=== PATIENT | female | born 1970 | race Caucasian/White ===

== ENCOUNTER 2019-11-14 13:09 | Emergency (ER) | payer MEDICAID, OTHER ==
[~2019-11-14] VITALS: Ht 160 cm; Wt 84.9 kg
[~2019-11-14 13:09] MED LIST: LORA-446 PO; SERT25TA PO; ZOLP10TA PO
[2019-11-14 13:11] VITALS: BP 175/92
--- NOTE | 2019-11-14 13:56 | NUR ---
ALL RESULTS ARE BACK AT THIS TIME. CHART UP FOR RECHECK.
--- NOTE | 2019-11-14 14:05 | NUR ---
AT BEDSIDE TO UPDATE PT ON POC. TECHS AT BEDSIDE FOR SPINT PLACEMENT.
== END 2019-11-14 14:45 | disposition home or self-care (01) ==
LOC: ED 14:38
DX: S52.125A Nondisplaced fracture of head of left radius, initial encounter for closed fracture (principal); W18.39XA Other fall on same level, initial encounter; Y93.89 Activity, other specified; Y92.098 Other place in other non-institutional residence as the place of occurrence of the external cause; Y99.8 Other external cause status
CPT/HCPCS: 29105; 99283